=== PATIENT | male | born 1990 | race Caucasian/White ===

== ENCOUNTER 2019-09-02 03:08 | Emergency (ER) | payer OTHER ==
--- NOTE | 2019-09-02 04:11 | RADIOLOGY REPORT (SQ) ---
EXAM DESCRIPTION: XR ANKLE 3 OR MORE VIEWS COMPLETED DATE/TME: 09/02/2019 00:00 CLINICAL HISTORY: 28 years, Male, pain COMPARISON: None. NUMBER OF VIEWS: Three TECHNIQUE: Three views of the left ankle LIMITATIONS: None. FINDINGS: There is no acute fracture or dislocation.. No large soft tissue swelling. No radiopaque foreign body. IMPRESSION: No acute fracture or dislocation copyright 2010 [email or web address]- All Rights Reserved
--- NOTE | 2019-09-02 04:45 | ER Document Report ---
HPI - HPI Time Seen by Provider: 09/02/19 04:33 Pain Level: 4 Context: Patient is a 28-year-old male that comes to the emergency department for chief complaint of left ankle injury. He states he was running, stepped on a brick that was sitting in the road, twisted his ankle awkwardly in an eversion movement. He reports swelling and pain to the inside of the ankle on the left. He denies any pain, hip pain, fall injury. He denies any other complaints. He has had knee surgery on the same side. - DERM Skin Color: Normal Past Medical History - General Information source: Patient - Social History Smoking Status: Never Smoker Chew tobacco use (# tins/day): No Frequency of alcohol use: None Drug Abuse: None Lives with: Family Family History: Reviewed & Not Pertinent Patient has suicidal ideation: No Patient has homicidal ideation: No Past Surgical History: Reports: Hx Orthopedic Surgery - L knee - Immunizations Hx Diphtheria, Pertussis, Tetanus Vaccination: Yes Vertical Provider Document - CONSTITUTIONAL General Appearance: WD/WN, No Apparent Distress - INFECTION CONTROL TRAVEL OUTSIDE OF THE [place] IN LAST 30 DAYS: No - HEENT HEENT: Atraumatic, Normocephalic - NECK Neck: Normal Inspection - RESPIRATORY Respiratory: Breath Sounds Normal, No Respiratory Distress, Chest Non-Tender - CARDIOVASCULAR Cardiovascular: Regular Rate, Regular Rhythm - GI/ABDOMEN Gastrointestinal: Abdomen Soft, Abdomen Non-Tender. negative: Abdomen Tender - MUSCULOSKELETAL/EXTREMETIES Musculoskeletal/Extremeties: MAEW, FROM, Tender - There is soft tissue swelling and pain to the medial malleolus area of the left ankle. Patient still can move the ankle, the remaining foot and ankle are unremarkable including the Achilles. The capillary refill and sensation are normal. Normal leg, knee, hip exam. - NEURO Level of Consciousness: Awake, Alert, Appropriate Motor/Sensory: No Motor Deficit, No Sensory Deficit - DERM Integumentary: Warm, Dry, No Rash Course - Re-evaluation Re-evalutation: No other injuries noted other than soft tissue swelling to the left medial malleolus. X-rays are negative. Consistent with sprain. Provided with immobilization, work release, discussed treatment, exudations, follow-up, return precautions. Patient states understanding and agreement. - Vital Signs Vital signs: Temp Pulse Resp BP Pulse Ox 98.0 F 97 18 145/73 H 98 11/24/19 03:12 09/02/19 03:12 09/02/19 03:12 09/02/19 03:12 09/02/19 03:12 Procedures - Immobilization Left ankle Pre-Proc Neuro Vasc Exam: Normal Immobilizer type: Monty wrap, Ankle stirrup Performed by: PCT Post-Proc Neuro Vasc Exam: Normal Alignment checked and good: Yes Discharge - Discharge Clinical Impression: Left ankle swelling Left ankle injury Qualifiers: Encounter type: initial encounter Qualified Code(s): S99.912A - Unspecified injury of left ankle, initial encounter Condition: Stable Disposition: HOME, SELF-CARE Additional Instructions: Your evaluation is consistent with an ankle sprain with soft tissue swelling but no fracture or concerning finding is noted otherwise. Recommendation is to ice the area 3-4 times a day, take anti-inflammatory such as naproxen or ibuprofen, elevate when possible, wear the ankle stirrup and use the crutches for the next 2 to 3 days. Return to normal activity when symptoms resolved. Follow-up with primary care. Return for any concerning symptoms including severe swelling or pain. Forms: Return to Work
[2019-09-02 05:09] VITALS: BP 148/87
== END 2019-09-02 05:08 | disposition home or self-care (01) ==
LOC: ER 03:08
DX: S99.912A Unspecified injury of left ankle, initial encounter (principal); X50.0XXA Overexertion from strenuous movement or load, initial encounter
CPT/HCPCS: 99283; 73610; L1902